=== PATIENT | female | born 1995 ===

== ENCOUNTER 2024-10-02 07:47 | Emergency (ER) | payer BC, SELFPAY ==
--- NOTE | ~2024-10-02 | XR_ITS ---
EXAMINATION: XR chest 2V DATE: 10/02/2024 08:40 INDICATION: Chest pain TECHNIQUE: PA and lateral views of the chest were obtained. COMPARISON: None FINDINGS: The lungs are clear with no focal airspace opacities, pulmonary edema, pleural effusion or pneumothor ax. The cardiomediastinal silhouette is normal. Mild thoracolumbar levocurvature. IMPRESSION: 1. No acute cardiopulmonary disease. Reviewed, dictated and finalized at location A.
--- NOTE | 2024-10-02 07:48 | ECG_ITS ---
Test Date: 2024-10-02 08:02:30 Measurements Intervals [place] Rate: 68 P: 61 [place]: 134 QRS: 53 QRSD: 82 T: 30 QT: 394 QTc: 422 Interpretive Statements SINUS RHYTHM WITH SINUS ARRHYTHMIA BASELINE ARTIFACT- V2-V6 NORMAL ECG No previous ECG available for comparison Electronically Signed On 10-02-2024 08:15:16 CDT by Uriel Humphreys D.O.
[2024-10-02 08:00] VITALS: BP 121/78; PULSE 72; RESP 16; TEMP 36.6; O2SAT 97
--- NOTE | 2024-10-02 08:16 | ED.GENADULT ---
HPI - General Adult General Chief complaint: Chest Pain Stated complaint: chest pain Time Seen by Provider: 10/02/24 07:50 History of Present Illness HPI narrative: Patient is a 29-year-old female who presents ER with chest pain. Began this morning. Did epigastric and feels like she has full and bloating. No dyspnea. No cough. No diarrhea or vomiting. Has not had similar symptoms. She does have some anxiousness. She has had this intermittently in the past. No association with eating. Related Data Allergies Allergy/AdvReac Type Severity Reaction Status Date / Time No Known Allergies Allergy Verified 10/02/24 08:38 Review of Systems Review of Systems: All systems reviewed & are unremarkable except as noted in HPI and below Constitutional: Constitutional: Reports no additional constitutional complaints Cardiovascular: Cardiovascular: Reports no additional cardiovascular complaints Respiratory: Respiratory: Reports no additional respiratory complaints Gastrointestinal: Gastrointestinal: Reports no additional gastrointestinal complaints Genitourinary: Genitourinary: Reports no additional female genitourinary complaints PMFSH Past Medical History Medical History (Updated 10/02/24 @ 12:[address] Galeana MD) Mental health disorder Surgical History Surgical History (Updated 10/02/24 @ 08:[address] Galeana MD) No pertinent past surgical history Exam Narrative: GENERAL: Well-appearing, well-nourished, and in no acute distress. HEAD: Normocephalic, atraumatic. EYES: PERRL and EOMI. ENT: Mucous membranes moist. CHEST: Clear to auscultation. No respiratory distress. HEART: Regular rate and rhythm. Normal peripheral pulses. ABDOMEN: Soft, mild epigastric tenderness, nondistended. EXTREMITIES: Normal range of motion. No edema. SKIN: Warm, dry, no rash. NEURO: Alert and oriented x3. PSYCH: Normal mood and affect. Course Course Emergency Course: Troponin negative x2. Patient had recurrent chest pain after a needlestick for the 2nd troponin and recognize that her chest pain is actually related to anxiety. Urinalysis with infection she will be discharged with oral antibiotic. Vital Signs Vital signs: Vital Signs Temperature 98 F 10/02/24 08:00 Pulse Rate 72 10/02/24 08:00 Respiratory Rate 16 10/02/24 08:00 Blood Pressure 121/78 10/02/24 08:00 Pulse Oximetry 97 10/02/24 08:00 Oxygen Delivery Room Air 10/02/24 08:00 Temperature 98 F 10/02/24 08:00 Pulse Rate 64 10/02/24 10:30 Respiratory Rate 16 10/02/24 10:30 Blood Pressure 108/79 10/02/24 10:30 Pulse Oximetry 100 10/02/24 10:30 Oxygen Delivery Room Air 10/02/24 09:00 Medical Decision Making Vital Signs Vital Signs: Vital Signs Temperature 98 F 10/02/24 08:00 Pulse Rate 72 10/02/24 08:00 Respiratory Rate 16 10/02/24 08:00 Blood Pressure 121/78 10/02/24 08:00 Pulse Oximetry 97 10/02/24 08:00 Oxygen Delivery Room Air 10/02/24 08:00 Temperature 98 F 10/02/24 08:00 Pulse Rate 64 10/02/24 10:30 Respiratory Rate 16 10/02/24 10:30 Blood Pressure 108/79 10/02/24 10:30 Pulse Oximetry 100 10/02/24 10:30 Oxygen Delivery Room Air 10/02/24 09:00 Lab Data 10/02/24 08:23 10/02/24 08:23 Labs: Lab Results 10/02/24 10/02/24 10/02/24 Range/Units 08:16 08:23 11:23 WBC 9.1 (4.5-10.0) K/mm3 RBC 4.91 (4.2-5.4) M/mm3 Hgb 13.9 (12.0-15.0) g/dL Hct 43.9 (37.0-47.0) % MCV 89.4 (80-100) fl MCH 28.3 (26-34) pg MCHC 31.7 L (32-36) g/dl RDW 14.7 H (11.5-14.5) % Plt Count 343 (150-375) k/mm3 MPV 10.3 (7.4-10.4) fl Immature Gran % (Auto) 0.4 (0-0.5) % Neut % (Auto) 64.8 (45.5-73.1) % Lymph % (Auto) 28.1 (18.3-44.2) % [place] % (Auto) 4.4 (2.6-8.5) % Eos % (Auto) 2.0 (0-4.4) % Baso % (Auto) 0.3 (0.2-1.2) % Lymph # (Auto) 2.56 (0.9-3.2) K/mm3 [place] # (Auto) 0.4 (0.1-0.6) K/mm3 Eos # (Auto) 0.2 (0-0.3) K/mm3 Baso # (Auto) 0.0 (0.0-0.1) K/mm3 Abs Immat Gran (auto) 0.04 H (0.00-0.031) K/mm3 Absolute Neuts (auto) 5.9 (1.3-6.7) K/mm3 Absolute Nucleated RBC 0.000 (0.0-0.012) K/mm3 Nucleated RBC % 0.0 (0.0-0.2) % PT 12.6 (11.1-14.7) Seconds INR 0.9 APTT 25.5 (22.3-36.8) Seconds Sodium 139 (137-145) mmol/L Potassium 4.4 (3.4-5.0) mmol/L Chloride 107 (98-107) mmol/L Carbon Dioxide 24 (22-30) mmol/L Anion Gap 8 (4-12) mmol/L BUN 8 (7-17) mg/dL Creatinine 0.85 (0.7-1.0) mg/dL Estim Creat Clear Calc 75 ml/min Estimated GFR > 60 (59 - ) Glucose 93 (65-110) mg/dL Calcium 9.5 (8.4-10.2) mg/dL Total Bilirubin 0.4 (0.2-1.3) mg/dL AST 27 (14-36) U/L ALT 16 (6-35) U/L Alkaline Phosphatase 80 (38-126) U/L Troponin I < 0.012 < 0.012 (0.000-0.034) ng/mL Total Protein 7.8 (6.3-8.2) g/dL Albumin 4.5 (3.5-5.1) g/dL Lipase 79 (23-300) U/L Urine Color Yellow (Yellow) Urine Appearance Clear (Clear) Urine pH 7.0 (5.0-9.0) Ur Specific [place] 1.003 (1.001-1.035) Urine Protein Negative (Negative) mg/dL Urine Glucose (UA) Negative (Negative) mg/dL Urine Ketones Negative (Negative) mg/dL Ur Blood (Man) 2+ H (Negative) Urine Nitrate Negative (Negative) Urine Bilirubin Negative (Negative) Urine Urobilinogen 0.2 (<2.0) mg/dL Leukocyte Esterase Rfl 3+ H (Negative) VELIA/UL Urine RBC 0-2 (0-2) /hpf Urine WBC 51-100 H (0-3) /hpf Ur Squamous Epith Cells None seen (Few) /hpf Urine Bacteria None seen /hpf Urine Casts 0-2 Imaging Data Radiologist's impression: ITS Impressions Chest X-Ray 10/02/24 08:45 IMPRESSION: 1. No acute cardiopulmonary disease. ECG Data EKG #1: ECG completion date: 10/02/24 ECG completion time: 08:02 EKG Interpretation: normal rate (68), sinus rhythm, no ST changes, normal QRS, normal QT and NL axis Discharge Plan Discharge Clinical Impression: Anxiety, UTI (urinary tract infection) Patient Disposition: Home Condition: Stable Instructions: Urinary Tract Infection in Women (ED), Anxiety (ED) Additional Instructions: Please return to the emergency department if you develop severe and persistent chest pain, difficulty breathing, dizziness, leg swelling or if you are coughing up blood as these can be signs of a medical emergency. Please call your doctor for a follow up appointment to determine the need for further testing. Patient Language: Swedish Prescriptions: New cephalexin 500 mg capsule 500 mg PO Q12H Qty: 14 0RF Follow-up/Referrals: Jacquelin Mendez DO [Physician] - 1 Week PHYSICIAN,DIETARY ASSISTANT [Primary Care Provider] -
[2024-10-02 08:26] LABS: Add Urine Microscopic? YES; Appearance Urine Clear (Clear); Bacteria Urine None Seen /hpf; Bilirubin Urine Negative (Negative); Blood Urine 2+ (Negative); Color Urine Yellow (Yellow); Glucose Urine UA Negative (Negative); Ketones Urine Negative (Negative); Leukocyte Esterase Ur 3+ LEU/UL (Negative); Nitrate Urine Negative (Negative); Non Pathogenic Casts 0-2; Protein Urine Negative (Negative); RBC Urine 0-2 /hpf (0-2); Specific Grav Ur 1.003 (1.001-1.035); Squamous Epithelial Cell Urine None Seen /hpf (Few); Urobilinogen Urine 0.2 mg/dL (<2.0); WBC Urine 51-100 /hpf (0-3)
[2024-10-02 08:30] VITALS: BP 111/78; PULSE 70; RESP 16; O2SAT 100
--- OUTSIDE RECORDS SUMMARY | 2024-10-02 08:33 | XMS_ITS | Clinical Summary ---
Author Organization [facility] Address [address] [place] [phone] Phone Care Team Providers Care Tool Carrier Name Role Phone Provider, None Primary Care Provider Unavailabl e Allergies No known active allergies Medications promethazine-dex tromethorphan (PROMETHAZINE-DM ) 6.25-15 MG/5ML SyrupIndications :Viral URI with cough Take 5 mL by mouth every 4 hours as needed for Cough. 240 mL 1 Active Additional Information Patient not taking.Reported on 04/16/2022 albuterol 108 (90 Base) MCG/ACT Aerosol SolutionIndicati ons:Acute cough,Viral URI with cough take 2 Puffs by inhalation every 4 hours as needed for Wheezing or Cough. 8 g 2 Active Additional Information Patient not taking.Reported on 04/18/2022 fluticasone (FLONASE) 50 MCG/ACT SuspensionIndica tions:Acute cough,Viral URI with cough 1-2 Sprays by Nasal route daily. Use in each nostril as directed. 15.8 mL 2 Active Additional Information Patient not taking.Reported on 04/18/2022 ondansetron (ZOFRAN-ODT) 4 MG TABLET DISPERSIBLEIndic ations:Nausea and vomiting, unspecified vomiting type Take 1 Tablet by mouth every 8 hours as needed for Nausea - 1st line. 20 Tablet 2 Active naproxen (NAPROSYN) 500 MG TabletIndication s:Menstrual cramps Take 1 Tablet by mouth 2 times daily (with meals). 60 Tablet Active Active Problems No known active problems Immunizations Immunization Administration Dates Next Due Covid-19, Mrna, Lnp-s, Pf, 30 Mcg/0.3 Ml Dose (Arnold fizer) 01/05/2021 TDAP Vaccine 09/01/2022 Family History Medical History Relation Name Comments Endometriosis Maternal Grandmother Cancer Mother Relation Name Status Comments Maternal Grandmother Mother Alive Social History Tobacco Use Types Packs/Day Years Used Date Smoking Tobacco: Every Day Cigarettes Smokeless Tobacco: Never Tobacco Cessation:Ready to Q uit: Not Asked; Counseling Given: Not Answered Alcohol Use Standard Drinks/Week Comments Yes 2 (1 standard drink = 0.6 oz pur e alcohol) 1/2 pint of tequila Sexually Active Control Partners Comments Yes Female Comments No Sex and Gender Information Value Date Recorded Sex Assigned at Not on file Legal Sex Female 12:19 PM CDT Gender Identity Not on file Sexual Orientation Not on file Last Filed Vital Signs Vital Sign Reading Time Taken Comments Blood Pressure 124/74 09/01/2022 12:20 PM CDT Pulse 72 09/01/2022 12:20 PM CDT Temperature 36.4 C (97.6 F) 09/01/2022 12:20 PM CDT Respiratory Rate 14 09/01/2022 12:20 PM CDT Oxygen Saturation 100% 09/01/2022 12:20 PM CDT Inhaled Oxygen Concentration - - Weight 80.4 kg (177 lb 4 oz) 09/01/2022 8:12 AM CDT Height 152.4 cm (5') 09/01/2022 8:12 AM CDT Body Mass Index 34.62 09/01/2022 8:12 AM CDT Plan of Treatment Health Maintenance Due Date Last Done Comments Hepatitis C Virus (HCV) Screening 1994 Hepatitis B Immunization (1 of 3 - 19+ 3-dose series) 2013 SARS-COV-2 Immunization (2 - season) 2023 01/05/2021 Influenza Immunization ([place] Ended) 2024 Respiratory Syncytial Virus (RSV) Immunization (Adult) (1 - 1-dose 75+ series) 2069 DTaP/Tdap/Td Immunization Discontinued 09/01/2022 Human Papillomavirus (HPV) Immunization Aged Out No longer eligible b ased on patient's age to complete this topic Meningococcal Immunization (ACWY) Aged Out No longer eligible based on patient's age to complete this topic Pneumococcal Immunization Combined Aged Out No longer eligible based on patient's age to complete this topic Rotavirus Immunization Aged Out No lo nger eligible based on patient's age to complete this topic Insurance [facility] Care Teams Tool Carrier Relationship Specialty Start Date End Date Provider, None [place] PCP - General 11/16/20
--- OUTSIDE RECORDS SUMMARY | 2024-10-02 08:33 | XMS_ITS | Patient Health Record ---
Author Organization [facility] Address [address] [place] [address] Care Team Providers Care Orthopedic Dentist Name Role Phone Snyder, Joe Primary Care Provider PERDOMO, V Unavailable Unavailable Reason For Referral No Information Social History PRAPARE Question Answer Notes Date Completed/Updated: 09/29/2024 What is your current housing situation? I do not have housing (staying with others, in a hotel, in a half-way, living outside on the street, on a beach, or in a park) Are you worried about losing your housing? Yes What is the highest level of school that you have finished? 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 Check all that apply Food,Utilities Has lack of transportation k ept you from medical appointments, meetings, work or from getting things needed for daily living? Yes, it has kept me from non-medical meetings, appointments, work, or getting things needed for daily living How often do you see or talk to people that you care about and feel close to? (For example: talking to friends on the phone, visiting friends or family, going to taoism or club meetings) More than 5 times a week How stressed are you? Stress is when someone feels tense, nervous, anxious, or can\t sleep at night because their mind is troubled Very much In the past year have you sp ent more than 2 nights in a row in a long term, chcf, prison center, or juvenile correctional facility? No Do you feel physically and e motionally safe where you currently live? Yes In the past year, have you b een afraid of your partner or ex-partner? Yes PRAPARE Score: 12 Encounters Encounter Location Date Provider Diagnosis [address] [place] [address] 09/30/2024 Joe Snyder Plan Of Treatment No Information Insurance Providers Payer Name Payer Address Payer Phone Subscriber Number Group Number Insured Name Patient Relationship to Insured Coverage Start Date Coverage End Date [facility] [id number] [address] [place] [address] [id number] Maggie Sinclair Self - patient is the insured 5
[2024-10-02 08:40] LABS: Basophils Percent Auto 0.3 % (0.2-1.2); Eosinophils Absolute Auto 0.2 K/mm3 (0-0.3); Hematocrit 43.9 % (37.0-47.0); Hemoglobin 13.9 g/dL (12.0-15.0); Immature Granulocyte Absolute 0.04 K/mm3 (0.00-0.031); Immature Granulocyte Percent A 0.4 % (0-0.5); Lymphocytes Absolute Auto 2.56 K/mm3 (0.9-3.2); Lymphocytes Percent Auto 28.1 % (18.3-44.2); Mean Corpuscular HGB Conc 31.7 g/dl (32-36); Mean Corpuscular Hemoglobin 28.3 pg (26-34); Mean Corpuscular Volume 89.4 fl (80-100); Mean Platelet Volume 10.3 fl (7.4-10.4); Monocytes Absolute Auto 0.4 K/mm3 (0.1-0.6); Monocytes Percent Auto 4.4 % (2.6-8.5); Neutrophils Absolute Auto 5.9 K/mm3 (1.3-6.7); Neutrophils Percent Auto 64.8 % (45.5-73.1); Platelet Count Result 343 k/mm3 (150-375); Red Blood Count 4.91 M/mm3 (4.2-5.4); Red Cell Distribution Width 14.7 % (11.5-14.5); White Blood Count 9.1 K/mm3 (4.5-10.0)
[2024-10-02 08:52] LABS: Alanine Aminotransferase 16 U/L (6-35); Albumin Level 4.5 g/dL (3.5-5.1); Alkaline Phosphatase 80 U/L (38-126); Anion Gap 8 mmol/L (4-12); Aspartate Amino Transferase 27 U/L (14-36); Bilirubin,Total 0.4 mg/dL (0.2-1.3); Blood Urea Nitrogen 8 mg/dL (7-17); Calcium 9.5 mg/dL (8.4-10.2); Carbon Dioxide 24 mmol/L (22-30); Chloride 107 mmol/L (98-107); Estimated CRCL calculation 75 ml/min; Estimated Glomerular Filt Rate > 60; Glucose 93 mg/dL (65-110); Lipase 79 U/L (23-300); Potassium 4.4 mmol/L (3.4-5.0); Sodium 139 mmol/L (137-145); Total Protein 7.8 g/dL (6.3-8.2)
[2024-10-02 08:53] LABS: INR 0.9; Prothrombin Time 12.6 Seconds (11.1-14.7)
[2024-10-02 08:54] LABS: Partial Thromboplastin Time 25.5 Seconds (22.3-36.8)
[2024-10-02] MEDS: ASPIRIN 81 MG CHEWABLE TABLET 324 MG PO (08:55)
[2024-10-02] MEDS: BELLADONNA ALK/PHENOB ELIX 10 ML, MAG HYDROX/ALUMINUM HYD/SIMETH 30 ML, LIDOCAINE 2% VI... PO (08:56)
[2024-10-02] MEDS: ONDANSETRON INJ 4 MG/2 ML VIAL IV PUSH (08:58)
[2024-10-02 09:00] VITALS: O2SAT 97
[2024-10-02 09:03] LABS: Troponin I < 0.012 ng/mL (0.000-0.034)
[2024-10-02 09:30] VITALS: BP 143/85; PULSE 66; RESP 16; O2SAT 100
[2024-10-02 10:30] VITALS: BP 108/79; PULSE 64; RESP 16; O2SAT 100
--- NOTE | 2024-10-02 10:39 | ECG_ITS ---
Test Date: 2024-10-02 11:10:54 Measurements Intervals [place] Rate: 58 P: 52 [place]: 133 QRS: 44 QRSD: 88 T: 28 QT: 428 QTc: 423 Interpretive Statements SINUS BRADYCARDIA BORDERLINE ECG Compared to ECG 10/02/2024 08:02:30 HEART RATE HAS DECREASED Electronically Signed On 10-02-2024 16:06:55 CDT by Uriel Humphreys D.O.
[2024-10-02 11:50] LABS: Troponin I < 0.012 ng/mL (0.000-0.034)
[2024-10-02 12:40] VITALS: BP 115/68; PULSE 64; RESP 18; O2SAT 98
== END 2024-10-02 12:40 | disposition home or self-care (01) ==
PROVIDERS: Emergency Provider Emergency Medicine
DX: F41.9 Anxiety disorder, unspecified (principal); N39.0 Urinary tract infection, site not specified; R00.1 Bradycardia, unspecified
CPT/HCPCS: 36415; 71046; 80053; 81001; 83690; 84484; 85025; 85610; 85730; 87086; 87186; 93005; 96374; 99284; A9270; J2405